=== PATIENT | female | born 1990 | race Caucasian/White ===

== ENCOUNTER 2019-05-14 06:00 | Day surgery (SDC) | payer OTHER ==
[~2019-05-14 06:00] MED LIST: AMOXICILLIN500 MG PO; ANAPROX275 MG PO; NAPROXEN SODIU550 MG PO; PRENATAL AD TAB1 TAB
[2019-05-14] MEDS ORDERED: NAPR500T14 PO (10:25)
[2019-05-14] MEDS ORDERED: CODE1TAB37 PO (10:25)
== END 2019-05-14 11:30 | disposition home or self-care (01) ==
LOC: CIR.AMB 06:00
DX: Z30.2 Encounter for sterilization (principal)

== ENCOUNTER 2020-03-25 11:41 | Outpatient (CLI) | payer OTHER ==
[~2020-03-25 11:41] MED LIST changes: +CODE1TAB37 PO; +NAPR500T14 PO
== END 2020-03-25 11:54 | disposition home or self-care (01) ==
LOC: RAD 11:41
DX: M54.5 Low back pain (principal); M25.551 Pain in right hip; M46.1 Sacroiliitis, not elsewhere classified

== ENCOUNTER 2022-01-22 11:52 | Outpatient (CLI) | payer OTHER | END 2022-01-22 11:55 | disposition home or self-care (01) | LOC: LAB 11:52 | DX: Z20.822 Contact with and (suspected) exposure to COVID-19 (principal) ==

== ENCOUNTER 2022-09-13 13:22 | Emergency (ER) | payer OTHER ==
[~2022-09-13] VITALS: Ht 170.2 cm; Wt 61.2 kg
== END 2022-09-13 19:35 | disposition home or self-care (01) ==
LOC: ER 13:22
DX: R11.10 Vomiting, unspecified (principal)